=== PATIENT | female | born 1945 | race Caucasian/White ===

== ENCOUNTER → 2017-01-29 | Outpatient (CLI) | payer OTHER, MEDICARE | LOC: BMCIMAGING 11:20 | PROVIDERS: ATTEND Physician Assistant Medical | DX: I65.23 Occlusion and stenosis of bilateral carotid arteries (principal); I25.10 Atherosclerotic heart disease of native coronary artery without angina pectoris; Z87.891 Personal history of nicotine dependence | CPT/HCPCS: G0202 ==

== ENCOUNTER → 2018-05-21 | Outpatient (CLI) | payer OTHER, MEDICARE | LOC: BMCIMAGING 13:38 | DX: Z12.31 Encounter for screening mammogram for malignant neoplasm of breast (principal) ==

== ENCOUNTER → 2018-06-17 | Outpatient (CLI) | payer OTHER, MEDICARE | LOC: BMCIMAGING 10:09 | DX: R92.8 Other abnormal and inconclusive findings on diagnostic imaging of breast (principal) ==